=== PATIENT | female | born 1945 | race Caucasian/White ===

== ENCOUNTER 2016-02-25 17:54 | Emergency (ER) | payer MEDICARE, OTHER ==
[~2016-02-25] VITALS: Ht 162.6 cm; Wt 79.0 kg
[2016-02-25 17:57] VITALS: BP 134/72; PULSE 71; RESP 20; O2SAT 96
--- NOTE | 2016-02-25 19:18 | ED.REPORT ---
HPI-Back Pain 40 and Over Date of Service Feb 25, 2016 ED Provider: Yoav Baumann MD This patient is a 71 year old female with a history of DM complaining of R hip/ low back pain that started this afternoon. The pain worsened to the point that she could not get out of her car tonight. Pt. states that she has not had a fall or injury lately. She admits to decreased appetite and diarrhea, but denies melena, chest pain, fever, hematuria, incontinence, dysuria, numbness/ tingling/weakness in legs, saddle numbness, or hematochezia. The pt has no history of appendectomy. She last drank water 1.5 hours ago. Nursing Notes Stated Complaint: SHARP PAIN RT HIP Chief Complaint: Back Pain or Injury Nursing Notes Reviewed: Yes Allergies: Coded Allergies: No Known Allergies (Unverified , 02/25/16) Scheduled PRN Ibuprofen (Ibuprofen) 800 Mg Tablet 800 MG PO TID PRN PRN For Pain General Time Seen by MD: 19:17 Chief Complaint Back pain Hx Obtained From: Patient Arrived By: Walk-in Sudden in Onset?: No Onset Occurred: 5 - 8 hours ago Symptom Duration: Since onset Location: : Spinal lumbar area: Spinal sacral area Quality: Painful Radiation: : Does not radiate Severity: Current: Severe Severity: Maximum: Severe Recent Healthcare: No recent doctor visit, No recent hospitalization Similar Sx Previous: No Past Medical History Past Medical History Reports: Diabetes mellitus Past Surgical History None reported Smoking History Unknown if Ever Smoker Social History Other Social History: Good social support, Local resident Ambulatory Status Independent Review of Systems Review of Systems Note: Decreased appetite Denies saddle numbness Basic Review of Systems Eyes: Vision NL, No discharge ENT: Hearing NL, No pain, No nasal congestion, No pharyngeal pain Allergy / Immune: No allergy Psychiatric: Normal thought content Constitutional: Denies: Fever Cardiovascular: Denies: Chest pain GI: Reports: Diarrhea, Denies: Hematochezia Female: Denies: Dysuria, Hematuria, Incontinence Musculoskeletal: Reports: Back pain, Joint pain (right hip) Neurologic: Denies: Numbness, Weakness Complete sys rev & neg: except as marked. Physical Exam Initial Vital Signs Vital Signs (First) Date Time Temp Pulse Resp B/P Pulse Ox O2 Delivery O2 Flow Rate FiO2 02/25/16 17:57 71 20 134/72 96 Room Air 1/9/17 20:59 36.8 Initial VS: Reviewed Head / Eyes: Atraumatic, Normocephalic, PERRL ENT: Mucous membranes moist, Conjunctiva normal, No scleral icterus Neck: Supple, Non-tender, Full range of motion Lymphatic: No lymphadenopathy Extremities: Vascular intact, Neuro intact Skin: Warm, Dry, No cyanosis Psychiatric: Mood/affect normal, Behavior normal, Normal thought content General/Constitutional: Awake, Alert, Well developed Respiratory / Chest: Atraumatic, Breath sounds NL, Breath sounds = bilat, No respiratory distress, No rales, No rhonchi, No wheezing Cardiovascular: Heart rate NL, Regular rhythm, Heart sounds NL, No murmurs Abdomen: Atraumatic, Soft Back: Atraumatic, No CVA tenderness No spinal tenderness R lateral back tenderness Neurologic: Oriented X3, Speech NL SLR positive at 45 degrees Interpretation & Diagnostics Lab Results Interpretation Result Diagram: 02/25/16194202/25/161942 Test 02/25/16 19:43 02/25/16 20:14 White Blood Count 9.8th/mm3 (3.8-10.1) Red Blood Count 4.90mil/mm3 (3.90-5.20) Hemoglobin 14.0g/dL (12.0-15.6) Hematocrit 42.4% (35.0-46.0) Mean Corpuscular Volume 86.5fL (81-100) Mean Corpuscular Hemoglobin 28.6pg (27.0-35.0) Mean Corpuscular Hemoglobin Concent 33.0% (32.0-37.0) Red Cell Distribution Width 12.6% (12.3-15.4) Platelet Count 208bil/L (150-400) Neutrophils (%) (Auto) 68.3% (40-74) Lymphocytes (%) (Auto) 17.2% (14-46) Monocytes (%) (Auto) 12.4% (4-12) Eosinophils (%) (Auto) 1.5% (0-5) Basophils (%) (Auto) 0.3% (0-3) Sodium Level 138mEq/L (134-144) Potassium Level 4.1mEq/L (3.5-5.2) Chloride Level 100mEq/L (97-108) Carbon Dioxide Level 27mmol/L (18-29) Blood Urea Nitrogen 17mg/dL (8-27) Creatinine 0.74mg/dL (0.57-1.00) Estimat Glomerular Filtration Rate 111mL/min (>59) Glucose Level 177mg/dL (60-99) Calcium Level 9.1mg/dL (8.5-10.1) Magnesium Level 1.9mg/dL (1.6-2.6) Total Bilirubin 0.4mg/dL (0.0-1.2) Aspartate Amino Transf (AST/SGOT) 25U/L (0-50) Alanine Aminotransferase (ALT/SGPT) 26U/L (0-32) Alkaline Phosphatase 70U/L (25-165) Total Protein 7.0g/dL (6.4-8.4) Albumin 3.8g/dL (3.4-5.0) Lipase 24U/L (13-60) Hold Giles Top Tube Received (Received) Urine Color Yellow (YELLOW) Urine Appearance Clear (CLEAR,HAZY) Urine pH 5.5 (5.0-8.0) Urine Specific Ridge 1.025 (1.003-1.035) Urine Protein Negativemg/dL (NEG,TRACE) Urine Glucose (UA) Negativemg/dL (NEGATIVE) Urine Ketones Negativemg/dL (NEGATIVE) Urine Occult Blood Negative (NEGATIVE) Urine Nitrite Negative (NEGATIVE) Urine Bilirubin Negative (NEGATIVE) Urine Urobilinogen Normalmg/dL (NORMAL) Urine Leukocyte Esterase Trace (NEGATIVE) Urine RBC 0-2/hpf (0-2) Urine WBC 0-5/hpf (0-5) Urine Epithelial Cells Few/hpf (NONE-MOD) Urine Crystals None seen (NONE SEEN) Urine Bacteria Few/hpf (NONE-FEW) Urine Hyaline Casts None/lpf (NONE) Urine Granular Casts None seen (NONE SEEN) Urine Waxy Casts None seen (NONE SEEN) Urine Red Blood Cell Casts None seen (NONE SEEN) Urine White Blood Cell Casts None seen (NONE SEEN) Urine Mucus Present (None Seen) Urine Trichomonas None seen (NONE SEEN) Urine Yeast None (NONE SEEN) Urinalysis Comment None Urine Culture Reflexed Indicated CT Abd / Pelvis Interpretation IMPRESSION: No imaging explanation for right lower quadrant abdominal pain. The appendix appears normal. Dictated by: Cesar Mejia M.D. on 02/25/2016 at 21:04 Interpretation / Wet Read by: Interpret - Radiologist Re-Eval/Medical Decision Med Decision/Clinical Course 71-year-old female history of diabetes presenting complaining of right lower back pain radiating to right hip started earlier today. Straight leg raise is positive. She did have some questionable right lower quadrant tenderness therefore CT abdomen and pelvis was performed with no evidence of appendicitis. Labs unremarkable. Urine negative for infection. Likely sciatica. No red flag symptoms. Has taken ibuprofen as needed follow-up primary doctor this week. Source of Hx: Old records Re-Evaluation/Progress : Time of Eval: 22:18 Patient Status: Condition improved Re-Evaluation/Progress Note: Disuccused with pt. regarding results and findings. Ready for discharge. Pt. understands and agrees with plan. All questions have been addressed at this time. Counseled Regarding: Diagnosis, Lab results, Need for follow-up, When/why to return to ED Discharge & Departure Impression: Primary Impression: Sciatica Laterality: right Qualified Code: M54.31 - Sciatica, right side Additional Impression: Low back pain Chronicity: acute Back pain laterality: right Sciatica presence: with sciatica Sciatica laterality: sciatica of right side Qualified Code: M54.41 - Lumbago with sciatica, right side Disposition: Home Discharge Condition All VS Reviewed: Yes Condition: Stable Patient Instructions: Acute Low Back Pain (ED), Sciatica (ED) Additional Instructions: Thank you for entrusting your care with us today. Please follow up with with your primary care provider. Take Ibuprofen as needed for pain. Come back to the emergency room if you have abdominal pain, vomiting, fever, or new or concerning symptoms. Referrals: Flaco Yousif MD (PCP) Scribe Attestation Portions of this note were transcribed by Therese Martinez and Marleny Selby. I, Dr. Baumann personally performed the history, physical exam and medical decision-making; I reviewed and confirmed the accuracy of the information in the transcribed note. Signed by: Therese Martinez and Lester Jean-Baptiste, 2015 and 23:11. copies to: Flaco Yousif MD, Ben M MD Feb 25, 2016 19:17 Niesha Selby [Marleny] Feb 25, 2016 19:34 THERESE MARTINEZ Feb 25, 2016 23:12
[2016-02-25] MEDS ORDERED: 0.9% Sodium Chloride 1,000 ML IV ONE (19:27)
[2016-02-25] MEDS ORDERED: Ondansetron 2 mg/mL 2 mL Inj IVPUSH PRN (19:30)
[2016-02-25 19:54] LABS: BASOPHILS % (AUTO) 0.3 % (0-3); EOSINOPHILS % (AUTO) 1.5 % (0-5); MONOCYTES % (AUTO) 12.4 % (4-12); Mean Corpuscular Hemoglobin 28.6 pg (27.0-35.0); Mean Corpuscular Volume 86.5 fL (81-100); NEUTROPHILS % (AUTO) 68.3 % (40-74); Platelet Count 208 bil/L (150-400)
[2016-02-25 20:15] LABS: Magnesium 1.9 mg/dL (1.6-2.6)
[2016-02-25 20:59] VITALS: BP 112/64; PULSE 81; RESP 16; O2SAT 95
--- NOTE | 2016-02-25 21:06 | DRSVH ---
PROCEDURE: CT ABDOMEN AND PELVIS WITH CONTRAST ([id number]) INDICATIONS: 71 year-old female with right lower quadrant abdominal pain since this morning. TECHNIQUE: After the administration of intravenous contrast, 5 mm thick sections acquired from the diaphragm to the symphysis. 5 mm coronal and sagittal reformats were acquired. For radiation dose reduction, the following was used: automated exposure control, adjustment of mA and/or kV according to patient siz e. COMPARISON: None. FINDINGS: Image quality: Excellent. ABDOMEN: Lung bases: Lung bases are clear. Heart size is normal. Solid organs: Liver and spleen are normal in size and enhancement. Gallbladder wall thickness is no rmal. Biliary system is non dilated. Pancreas enhances normally. No adrenal nodules. Kidneys demo nstrate normal size and enhancement, without hydronephrosis. Peritoneum and bowel: Bowel loops demonstrate normal wall thickness and caliber. The appendix appea rs normal in caliber on axial image 60. No free fluid or air. Nodes and vessels: No retroperitoneal or mesenteric adenopathy by size criteria. Aorta and inferior vena cava are normal in size, with aortoiliac atherosclerosis. Miscellaneous: No ventral hernias. PELVIS: Genitourinary: Bladder wall thickness is normal. Uterus and ovaries are normal in size. Miscellaneous: No inguinal hernias or adenopathy. Bones: No suspicious bony lesions. No vertebral body compression fractures. IMPRESSION: No imaging explanation for right lower quadrant abdominal pain. The appendix appears norm al. Dictated by: Cesar Mejia M.D. on 02/25/2016 at 21:04 Approved by: Cesar Mejia M.D. on 02/25/2016 at 21:04
[2016-02-25 21:44] LABS: APPEARANCE,URINE CLEAR (CLEAR,HAZY); COLOR,URINE YELLOW (YELLOW); OCCULT BLOOD,URINE NEGATIVE (NEGATIVE); PH,URINE 5.5 (5.0-8.0); UROBILINOGEN,URINE NORMAL (NORMAL)
[2016-02-25] MEDS ORDERED: IBUP800T28 PO (22:29)
[2016-02-25 22:41] VITALS: BP 114/50; PULSE 75; RESP 20; O2SAT 95
== END 2016-02-25 22:44 | disposition home or self-care (01) ==
LOC: SED 17:54
DX: M54.41 Lumbago with sciatica, right side (principal); E11.9 Type 2 diabetes mellitus without complications
CPT/HCPCS: 36415; 74177; 80053; 81000; 83690; 83735; 85025; 87086; 87088; 96361; 96374; 96375; 99285; J2270; J2405; J7030; Q9967